=== PATIENT | male | born 1955 | race American Indian/Alaskan Native ===

== ENCOUNTER 2017-09-21 10:40 | Day surgery (SDC) | payer MEDICAID ==
[~2017-09-21 10:40] MED LIST: NACL 0.9% 1000 ML 1,000 ML IV SCH; ZOFRAN ONE
--- NOTE | 2017-09-21 12:00 | Anesthesia Day of Surgery ---
Anesthesia Day of Surgery - Day of Surgery Patient Examined: Yes Patient H&P Reviewed: Yes Patient is NPO: Yes
--- NOTE | 2017-09-21 12:01 | Anesthesia Consultation ---
Anesthesia Consult and Med Hx Date of service: 09/21/17 - Airway Anesthetic Teeth Evaluation: Poor ROM Head & Neck: Adequate Mental/Hyoid Distance: Adequate Mallampati Class: Class II Intubation Access Assessment: Probably Good - Pulmonary Exam CTA: Yes - Cardiac Exam Cardiac Exam: RRR - Pre-Operative Health Status ASA Pre-Surgery Classification: ASA2 Proposed Anesthetic Plan: IV Sedation - Cardiovascular System Hx Hypertension: Yes - Central Nervous System Hx Back Pain: Yes
[2017-09-21] MEDS ORDERED: XYLOCAINE MPF 2% ONE (14:00)
[2017-09-21] MEDS ORDERED: DIPRIVAN 10 MG/ML IV ONE (14:07)
[2017-09-21] MEDS ORDERED: VERSED ONE (14:07)
[2017-09-21] MEDS ORDERED: WATER FOR IRRIG STERILE ONE (14:23)
[2017-09-21 14:58] VITALS: BP 119/84
--- NOTE | 2017-09-21 14:58 | Operative Report ---
Operative Report Operative Report: Date of procedure: 09/21/2017 Procedure: Colonoscopy with Snare polypectomy, multiple Hot Biopsy polypectomies and submucosal injection of saline. Attending physician: Rob Hay MD Public Safety Officer: Rob Hay MD Indication: Patient is a 61-year-old male who presents for screening colonoscopy. Patient has a past history of colon polyps. A colonoscopy serves to evaluate patient for colorectal cancer screening. Consent: Informed consent was obtained after advising the patient and family regarding nature of this procedure, its indications, potential benefits as well as possible complications including but not limited to bleeding perforation and adverse reaction to medication, infection as well as other cardiopulmonary complications. An informed written and verbal consent was then obtained after due opportunity was provided for questions and answers. Monitoring: Patient was monitored continuously with pulse oximetry and electrocardiographic recordings as well as blood pressure recordings. Vital signs remained stable throughout this procedure with no untoward events. Preoperative assessment: Patient was assessed immediately prior to this procedure for capacity to tolerate monitored anesthesia care and moderate sedation as well as general anesthesia. Patient's ASA classification is 2, Mallampati class is 2, Hyomental distance is 3. Instrument: [employer] video colonoscope Medications: Propofol given intravenously in divided doses. For details please refer to anesthesia records. Description of procedure: Patient was placed in the left lateral decubitus position after achieving sedation, a digital rectal examination was performed following which the colonoscope was introduced into the anal verge and advanced to the cecum which was identified by the cecal valve, the appendiceal orifice, as well as by the cecal strap and direct transillumination. The colonoscope was subsequently withdrawn with careful inspection of all mucosal surfaces. Patient tolerated this procedure well and was subsequently taken to the recovery room. The following findings were noted. Findings: The preparation was poor with incremental stool density particularly in the ascending colon to the cecum where visualization was very suboptimal.. The patient had diverticulosis of moderate severity involving the sigmoid the descending colon and proximal ascending colon. In the sigmoid colon, patient had 6 diminutive flat polyps measuring between 5-7 mm. These polyps were removed by hot biopsy polypectomy and retrieved completely. Also in the sigmoid colon, there was a broad-based 1.5 cm flat polyp which was elevated with submucosal injection of saline and was subsequently removed by snare electrocautery and retrieved. On the retroflexed view of the anal verge, patient had internal hemorrhoids. Impression: Multiple diminutive flat sigmoid colon polyps status post hot biopsy polypectomy. Flat sigmoid colon polyp status post submucosal injection with elevation of polyp and snare electrocautery with polyp removal. Diverticular disease of the colon Poor Colonoscopic preparation Internal hemorrhoids. Plan: Follow-up pathology report High-fiber diet Repeat colonoscopy in less than 1 year, because of the poor colonoscopic preparation and the findings of multiple colon polyps.
--- NOTE | 2017-09-21 14:59 | Discharge Summary ---
Short Stay Discharge Plan Activity: advance as tolerated Weight Bearing Status: Weight Bear as Tolerated Diet: regular Additional Instructions: Post Sedation D/C Instructions When you return home you may resume your regular diet unless otherwise directed. -Go directly home from the hospital and rest quietly. You may resume normal activities tomorrow. -Do NOT drive, return to work, operate any machinery or make any important personal or business decisions today. -Do NOT drink any alcohol or take nerve or sleeping drugs. They add to the effects of the medicine still present in your body. Follow up with: ADAM PERRY MD [Primary Care Provider] - 7 Days
== END 2017-09-21 10:41 | disposition home or self-care (01) ==
LOC: GIO 10:40
PROVIDERS: ATTEND Internal Medicine Gastroenterology
DX: Z12.11 Encounter for screening for malignant neoplasm of colon (principal); K57.30 Diverticulosis of large intestine without perforation or abscess without bleeding; K64.8 Other hemorrhoids; Z86.010 Personal history of colon polyps
CPT/HCPCS: 45381; 45384; 45385; 88305; J2250; J2405; J2704; J7030